=== PATIENT | female | born 1955 | race Caucasian/White ===

== ENCOUNTER 2019-10-12 09:07 | Emergency (ER) | payer OTHER ==
[~2019-10-12] VITALS: Ht 160 cm; Wt 66.7 kg
--- NOTE | 2019-10-12 09:12 | NUR ---
PATIENT AMBULATED TO BED 9.
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
[2019-10-12 09:18] VITALS: BP 157/97
[2019-10-12] MEDS ORDERED: LIDOCAINE MPF 1% 10 MG/ML VIAL INJ ONE ×2 (09:30→09:45)
--- NOTE | 2019-10-12 09:30 | NUR ---
SILVER NITRITE AND LIDOCAINE AT BEDSIDE FOR ERMD TO ADMINISTER
--- NOTE | 2019-10-12 09:37 | NUR ---
dr quintero at bedside for procedure
[2019-10-12] MEDS ORDERED: SILVER NITRATE APPLICATOR 1 EA SWAB TP ONE ×2 (09:41→09:45)
--- NOTE | 2019-10-12 09:58 | NUR ---
Patient discharged, pt alert/awake. Written and verbal after care instructions given and explained regarding fingertip laceration. instructed that skin adhesive will fall off on its own, do not peel off. keep site dry for 1 day. use otc medications such as tylenol for pain Patient verbalized understanding. Ambulatory with steady gait. All questions addressed prior to discharge. Advised to follow up with PMD.
--- NOTE | 2019-10-12 09:58 | NUR ---
nadr to silver nitrite and and lidocaine. pain 3/10 upon discharge
== END 2019-10-12 09:58 | disposition home or self-care (01) ==
LOC: MED 09:07
DX: S61.012A Laceration without foreign body of left thumb without damage to nail, initial encounter (principal); Z88.8 Allergy status to other drugs, medicaments and biological substances; W26.8XXA Contact with other sharp object(s), not elsewhere classified, initial encounter; Y93.89 Activity, other specified; Y92.89 Other specified places as the place of occurrence of the external cause; Y99.8 Other external cause status
CPT/HCPCS: 12001; 99283; J2001

== ENCOUNTER 2024-07-28 08:18 | Emergency (ER) | payer OTHER ==
[~2024-07-28] VITALS: Ht 154.9 cm; Wt 70.1 kg
[2024-07-28 08:27] VITALS: BP 159/91; PULSE 89; RESP 18; TEMP 98.3; O2SAT 98
[2024-07-28 09:11] LABS: BASOPHILS % (AUTO) 0.3 % (0.0-2.0); EOSINOPHILS # (AUTO) 0.1 K/uL (0-0.4); EOSINOPHILS % (AUTO) 0.5 % (0.0-4.0); HEMATOCRIT 37.2 % (36-48); LYMPHOCYTES # (AUTO) 0.9 K/uL (2.5-16.5); LYMPHOCYTES % (AUTO) 8.8 % (20.5-51.1); MEAN CORPUSCULAR HEMOGLOBIN 26 pg (27-31); MEAN CORPUSCULAR HGB CONC 32 g/dL (33-37); MONOCYTES # (AUTO) 0.7 K/uL (0.8-1.0); MONOCYTES % (AUTO) 6.7 % (1.7-9.3); NEUTROPHILS # (AUTO) 8.5 K/uL (1.8-7.7); NEUTROPHILS % (AUTO) 83.7 % (42.2-75.2); PLATELET COUNT (AUTO) 250 K/uL (140-450); RED BLOOD CELL COUNT(AUTO) 4.66 MIL/uL (4.20-5.40); RED CELL DISTRIBUTION WIDTH 15.7 % (11.6-13.7); WHITE BLOOD COUNT (AUTO) 10.2 K/uL (4.8-10.8)
[2024-07-28 09:22] LABS: ANION GAP 15.1 (8-16); CALCIUM 9.4 mg/dL (8.5-10.1); CARBON DIOXIDE 23.4 mmol/L (21-32); CREATININE 1.6 mg/dL (0.6-1.3); POTASSIUM 3.5 mmol/L (3.5-5.1)
[2024-07-28 09:29] LABS: ALBUMIN 3.7 g/dL (3.4-5.0); BILIRUBIN,DIRECT 0.1 mg/dL (0.0-0.3); TOTAL BILIRUBIN 0.7 mg/dL (0.0-1.0); TOTAL PROTEIN, SERUM 7.6 g/dL (6.4-8.2)
[2024-07-28] MEDS: KETOROLAC 30 MG/ML VIAL IVP ONE (09:36)
[2024-07-28] MEDS: MORPHINE SULFATE 4 MG/ML SYR IVP ONE (09:44)
[2024-07-28] MEDS: ONDANSETRON 4 MG/2 ML VIAL IVP ONE (09:44)
[2024-07-28 10:54] LABS: BILIRUBIN,URINE NEGATIVE (NEGATIVE); BLOOD, URINE 3+ (NEGATIVE); COLOR,URINE YELLOW (YELLOW); LEUKOCYTE ESTERASE ,URINE TRACE (NEGATIVE); NITRITE, URINE NEGATIVE (NEGATIVE); PROTEIN,URINE TRACE (NEGATIVE); UGLUCOSE NEGATIVE (NEGATIVE); UROBILINOGEN,URINE 0.2 EU/dL (0.2 - 1)
[2024-07-28 10:57] LABS: APPEARANCE,URINE HAZY (CLEAR)
[2024-07-28 11:15] LABS: BACTERIA,URINE 2+ /HPF (None Seen)
[2024-07-28 11:16] LABS: MUCUS,URINE 2+ /LPF (None Seen); SQUAMOUS EPITHELIAL CELL,UR 4-10 (MOD) /LPF (0-3 (FEW))
[2024-07-28] MEDS ORDERED: HYDR-5071 PO (12:10)
[2024-07-28] MEDS ORDERED: CEPH-588 PO (12:14)
[2024-07-28] MEDS ORDERED: ONDA-188 PO (12:15)
[2024-07-28] MEDS ORDERED: TAMS0.4C96 PO (12:15)
[2024-07-28 13:29] VITALS: BP 139/82; PULSE 85; RESP 18; TEMP 98.2; O2SAT 98
== END 2024-07-28 13:29 | disposition home or self-care (01) ==
LOC: MED 08:18
DX: N20.1 Calculus of ureter (principal); M79.7 Fibromyalgia; M81.0 Age-related osteoporosis without current pathological fracture; M19.90 Unspecified osteoarthritis, unspecified site; M51.369 Other intervertebral disc degeneration, lumbar region without mention of lumbar back pain or lower extremity pain; Z98.890 Other specified postprocedural states; Z79.899 Other long term (current) drug therapy; Z88.6 Allergy status to analgesic agent
CPT/HCPCS: 36415; 74176; 80048; 80076; 81001; 83690; 85025; 87086; 96374; 96375; 99285; J1885; J2270; J2405